=== PATIENT | male | born 1980 | race Caucasian/White ===

== ENCOUNTER 2016-07-13 22:33 | Emergency (ER) | payer OTHER ==
[~2016-07-13] VITALS: Ht 195.6 cm; Wt 86.2 kg
[2016-07-13] MEDS ORDERED: ALBUTEROL FS 2.5 MG/3 ML VIAL.NEB NEB ONE (23:00)
[2016-07-13] MEDS ORDERED: IPRATROPIUM NEB FS 0.5 MG/2.5 ML AMPUL.NEB NEB ONE (23:00)
[2016-07-13] MEDS ORDERED: predniSONE 20 MG TABLET PO ONE (23:00)
[2016-07-13] MEDS ORDERED: predniSONE 20 MG TABLET ONE (23:20)
[2016-07-13] MEDS ORDERED: IPRATROPIUM NEB FS 0.5 MG/2.5 ML AMPUL.NEB ONE (23:55)
[2016-07-13] MEDS ORDERED: ALBUTEROL FS 2.5 MG/3 ML VIAL.NEB ONE (23:55)
[2016-07-14 00:49] VITALS: BP 125/75
== END 2016-07-14 00:50 | disposition home or self-care (01) ==
LOC: ER 22:40
DX: J45.901 Unspecified asthma with (acute) exacerbation (principal)
CPT/HCPCS: 94640; 99283; A4606; J7512; Z7610